=== PATIENT | female | born 1975 | race African-American/Black ===

== ENCOUNTER 2019-05-03 01:05 | Inpatient (IN) | payer MEDICAID ==
[~2019-05-03] VITALS: Ht 179.1 cm; Wt 87.1 kg
[2019-05-03 01:28] LABS: BASOPHILS % 1.5 % (0.0-2.0); EOSINOPHILS % 4.1 % (0.0-5.0); HEMATOCRIT. 39.3 % (36.0-48.0); HEMOGLOBIN. 12.8 g/dL (12.0-16.0); LYMPHOCYTES % 49.3 % (20.0-50.0); MEAN CORPUSCULAR HEMOGLOBIN 24.8 pg (28.0-32.0); MEAN CORPUSCULAR VOLUME 75.9 fL (81.0-99.0); MEAN PLATELET VOLUME 8.1 fl (7.4-10.4); MONOCYTES % 9.6 % (2.0-8.0); NEUTROPHILS % 35.5 % (40.0-76.0); PLATELET 221 x1000/uL (130-400); RED BLOOD CELL COUNT 5.17 mill/uL (4.2-5.4); RED CELL DISTRIBUTION WIDTH 15.9 % (11.6-14.6)
[2019-05-03 01:36] LABS: CHLORIDE 114 mEq/L (98-107)
[2019-05-03 01:38] LABS: PARTIAL THROMBOPLASTIN TIME 26.1 sec (23.4-31.0); PROTHROMBIN TIME 10.7 sec (9.6-11.0)
[2019-05-03 01:40] LABS: ETHANOL BLOOD 72 mg/dL
[2019-05-03 01:43] LABS: LDL CHOLESTEROL 78 mg/dL (5-100)
[2019-05-03] MEDS ORDERED: LABETALOL 5MG/ML SYR 20 MG/4 ML SYRINGE IV ONE (01:45)
[2019-05-03 02:39] LABS: HCG SCREEN NEGATIVE
[2019-05-03 02:52] LABS: *AMPHETAMINES SCREEN URINE NEGATIVE (NEGATIVE); *BARBITURATES SCREEN URINE NEGATIVE (NEGATIVE); *BENZODIAZEPINES SCREEN URINE NEGATIVE (NEGATIVE)
[2019-05-03 02:53] LABS: *COCAINE SCREEN URINE NEGATIVE (NEGATIVE); METHADONE URINE SCREEN NEGATIVE (NEGATIVE); OPIATES URINE SCREEN NEGATIVE (NEGATIVE); PHENCYCLIDINE URINE SCREEN NEGATIVE (NEGATIVE)
[2019-05-03 03:02] LABS: CANNABINOID URINE SCREEN PRESUMTIVE POSITIVE (NEGATIVE)
[2019-05-03] MEDS ORDERED: IOHEXOL-350 100 ML BOTTLE ONE (04:00)
[2019-05-03] MEDS ORDERED: ASPIRIN 325MG EC TABLET PO ONE (05:00)
[2019-05-03] MEDS ORDERED: ONDANSETRON HCL 4MG/2ML INJ IV PRN (07:00)
[2019-05-03] MEDS ORDERED: KETOROLAC 15MG/ML VIAL IV PRN (07:00)
[2019-05-03] MEDS ORDERED: GUAIFENESIN 200MG/10ML SUGAR FREE UDC PO PRN (07:00)
[2019-05-03] MEDS ORDERED: CLONIDINE 0.1MG TABLET PO PRN (07:00)
[2019-05-03] MEDS ORDERED: ACETAMINOPHEN 325MG TABLET PO PRN (07:00)
[2019-05-03] MEDS ORDERED: DOCUSATE SODIUM 100MG CAPSULE PO PRN (07:00)
[2019-05-03] MEDS ORDERED: NITROGLYCERIN 0.4MG TABLET SL SL PRN (07:00)
[2019-05-03] MEDS ORDERED: MAGNESIUM/ALUMINUM HYDROXIDE/SIMETHICONE 30ML UDC PO PRN (07:00)
[2019-05-03] MEDS ORDERED: IPRATROPIUM/ALBUTEROL 0.5-3(2.5)MG/3ML NEB NEB PRN (07:00)
[2019-05-03 07:22] LABS: FOLIC ACID (FOLATE) SERUM 7.9 ng/mL (>5.38)
[2019-05-03] MEDS: ASPIRIN 325MG EC TABLET PO SCH (09:00)
[2019-05-03] MEDS: METOPROLOL TARTRATE 25MG TABLET PO SCH ×2 (09:00→20:28)
[2019-05-03] MEDS: CLOPIDOGREL 75MG TABLET PO SCH (09:26)
[2019-05-03] MEDS: FAMOTIDINE 20MG TABLET PO SCH ×2 (09:26→20:29)
[2019-05-03] MEDS: ENOXAPARIN 40MG/0.4ML SYR SUBCUT SCH (09:26)
[2019-05-03 14:45] VITALS: BP 153/84
[2019-05-03 16:00] VITALS: BP 143/80
[2019-05-03] MEDS ORDERED: INFLUENZA VIRUS VACCINE(AFLURIA) 0.5ML SYR IM ONE (17:30)
[2019-05-03] MEDS ORDERED: PNEUMOCOCCAL 23-VAL P-SAC VAC 0.5 ML IM ONE (17:30)
[2019-05-03 20:00] VITALS: BP 148/88
[2019-05-03] MEDS: ATORVASTATIN CALCIUM 10MG TABLET PO SCH (20:28)
[2019-05-03] MEDS: ZOLPIDEM TARTRATE 5MG TABLET PO PRN (20:29)
[2019-05-04] VITALS: BP 159/90
[2019-05-04 04:00] VITALS: BP 129/63
[2019-05-04 08:00] VITALS: BP 147/85
[2019-05-04] MEDS: LISINOPRIL 20MG TABLET PO SCH ×2 (08:57→21:03)
[2019-05-04] MEDS: METOPROLOL TARTRATE 25MG TABLET PO SCH ×2 (08:57→21:02)
[2019-05-04] MEDS: CLOPIDOGREL 75MG TABLET PO SCH (08:57)
[2019-05-04] MEDS: ASPIRIN 325MG EC TABLET PO SCH (08:58)
[2019-05-04] MEDS: FAMOTIDINE 20MG TABLET PO SCH ×2 (08:59→21:02)
[2019-05-04] MEDS: ENOXAPARIN 40MG/0.4ML SYR SUBCUT SCH (09:00)
[2019-05-04 11:56] VITALS: BP 110/82
[2019-05-04 16:00] VITALS: BP 138/80
[2019-05-04 20:00] VITALS: BP 162/93
[2019-05-04] MEDS: ATORVASTATIN CALCIUM 10MG TABLET PO SCH (21:03)
[2019-05-04] MEDS: ZOLPIDEM TARTRATE 5MG TABLET PO PRN (21:34)
[2019-05-05] VITALS (7 sets, daily range): BP systolic 131–173; BP diastolic 70–101
[2019-05-05] MEDS: CLOPIDOGREL 75MG TABLET PO SCH (09:00)
[2019-05-05] MEDS: FAMOTIDINE 20MG TABLET PO SCH ×2 (09:00→20:26)
[2019-05-05] MEDS: ASPIRIN 325MG EC TABLET PO SCH (09:00)
[2019-05-05] MEDS: METOPROLOL TARTRATE 25MG TABLET PO SCH ×2 (09:00→11:16)
[2019-05-05] MEDS: LISINOPRIL 20MG TABLET PO SCH ×2 (09:03→20:26)
[2019-05-05] MEDS: ENOXAPARIN 40MG/0.4ML SYR SUBCUT SCH (09:04)
[2019-05-05] MEDS: AMLODIPINE 10MG TABLET PO SCH (11:17)
[2019-05-05] MEDS: LORAZEPAM 0.5MG TABLET PO PRN ×2 (14:48→18:23)
[2019-05-05 19:05] LABS: BASOPHILS % 1.3 % (0.0-2.0); EOSINOPHILS % 3.1 % (0.0-5.0); HEMATOCRIT. 39.8 % (36.0-48.0); HEMOGLOBIN. 12.9 g/dL (12.0-16.0); LYMPHOCYTES % 37.2 % (20.0-50.0); MEAN CORPUSCULAR HEMOGLOBIN 24.6 pg (28.0-32.0); MEAN CORPUSCULAR VOLUME 75.6 fL (81.0-99.0); MEAN PLATELET VOLUME 8.5 fl (7.4-10.4); MONOCYTES % 9.3 % (2.0-8.0); NEUTROPHILS % 49.1 % (40.0-76.0); PLATELET 230 x1000/uL (130-400); RED BLOOD CELL COUNT 5.26 mill/uL (4.2-5.4); RED CELL DISTRIBUTION WIDTH 15.5 % (11.6-14.6)
[2019-05-05 19:15] LABS: CHLORIDE 108 mEq/L (98-107)
[2019-05-05] MEDS: ZOLPIDEM TARTRATE 5MG TABLET PO PRN (20:25)
[2019-05-05] MEDS: ATORVASTATIN CALCIUM 10MG TABLET PO SCH (20:26)
[2019-05-06] VITALS: BP 115/58
[2019-05-06 04:00] VITALS: BP 130/80
[2019-05-06 08:00] VITALS: BP 152/79
[2019-05-06] MEDS: ENOXAPARIN 40MG/0.4ML SYR SUBCUT SCH (08:41)
[2019-05-06] MEDS: LISINOPRIL 20MG TABLET PO SCH (08:41)
[2019-05-06] MEDS: METOPROLOL TARTRATE 25MG TABLET PO SCH (08:41)
[2019-05-06] MEDS: CLOPIDOGREL 75MG TABLET PO SCH (08:41)
[2019-05-06] MEDS: ASPIRIN 325MG EC TABLET PO SCH (08:41)
[2019-05-06] MEDS: AMLODIPINE 10MG TABLET PO SCH (08:41)
[2019-05-06] MEDS: FAMOTIDINE 20MG TABLET PO SCH (08:42)
[2019-05-06 10:05] VITALS: BP 152/79
== END 2019-05-06 10:30 | disposition home or self-care (01) | DRG 45 ==
LOC: ER 01:05 → 7WST 06:20 → EDBEDREQ 06:24 → EDBEDREQTM 06:24 → ENRESERV 14:12 → EDBEDREQ 14:18
PROVIDERS: ADMIT Internal Medicine; ATTEND Internal Medicine
DX: I63.81 Other cerebral infarction due to occlusion or stenosis of small artery (principal); E83.51 Hypocalcemia; I10 Essential (primary) hypertension; F19.10 Other psychoactive substance abuse, uncomplicated; R26.2 Difficulty in walking, not elsewhere classified; E78.00 Pure hypercholesterolemia, unspecified; F12.10 Cannabis abuse, uncomplicated; E78.5 Hyperlipidemia, unspecified; F17.210 Nicotine dependence, cigarettes, uncomplicated; Z68.27 Body mass index [BMI] 27.0-27.9, adult; Z71.51 Drug abuse counseling and surveillance of drug abuser
CPT/HCPCS: 36415; 70496; 70498; 70551; 71045; 80053; 80305; 80320; 82607; 82746; 82962; 83036; 83721; 83735; 83880; 84484; 84703; 85025; 86850; 86900; 90686; 90732; 93005; 93306; 93970; 96372; 97162; 99285; J1650; Q9967; G0480